=== PATIENT | female | born 2005 | race Caucasian/White ===

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

== ENCOUNTER 2023-12-06 20:16 | Emergency (ER) | payer OTHER ==
[~2023-12-06] VITALS: Ht 157.5 cm; Wt 74.9 kg
[~2023-12-06 20:16] MED LIST changes: +XULANE1 TDM TD
[2023-12-06] MEDS ORDERED: LORazepam 2 MG/ML VIAL IV ONE (20:45)
[2023-12-06] MEDS ORDERED: Ondansetron 4 MG/2 ML VIAL IV ONE (20:45)
[2023-12-06] MEDS ORDERED: NS 1,000 ML IV SCH (20:45)
[2023-12-06 20:59] LABS: BASO # 0.04 K/mm3 (0.02-0.10); EOS # 0.04 K/mm3 (0.04-0.40); EOS % 0.4 % (0.1-4.0); HEMOGLOBIN 14.2 g/dL (12.0-15.0); LYMPH# 2.37 K/mm3 (1.20-3.40); MEAN CELL VOLUME 84 fl (78-95); MEAN CORPUSCULAR HEMOGLOBIN 28 pg (26-32); MEAN CORPUSCULAR HGB CONC 33 g/dL (33-37); MEAN PLATELET VOLUME 9.2 fl (7.4-10.4); MONO # 0.55 K/mm3 (0.10-0.60); NEU # 6.21 K/mm3 (1.40-6.50); PLATELET COUNT 421 K/mm3 (130-400); RED BLOOD COUNT 5.15 M/mm3 (4.10-5.30); RED CELL DISTRIBUTION WIDTH 13.3 % (11.5-14.5); WHITE BLOOD COUNT 9.2 K/mm3 (4.8-10.8)
[2023-12-06 21:07] LABS: ALBUMIN 4.7 g/dL (3.5-5.0); SODIUM 137 mmol/L (136-145)
[2023-12-06 21:08] LABS: CALCIUM 9.9 mg/dL (8.3-10.5)
[2023-12-06 21:09] LABS: GLUCOSE 81 mg/dL (65-105)
[2023-12-06 21:10] LABS: TOTAL PROTEIN 7.5 g/dL (6.4-8.3)
[2023-12-06 21:11] LABS: TOTAL BILIRUBIN 0.5 mg/dL (0.2-1.2)
[2023-12-06 21:15] LABS: AST-SGOT 15 U/L (5-34)
[2023-12-06 21:16] LABS: ALCOHOL IN-HOUSE < 10 mg/dL (<10); ALT/SGPT 9 U/L (0-55); CARBON DIOXIDE 16 mmol/L (22-29)
[2023-12-06 21:17] LABS: ACETAMINOPHEN < 1 ug/mL
[2023-12-06 23:40] VITALS: BP 108/62
== END 2023-12-06 23:41 | disposition home or self-care (01) ==
LOC: ED 20:16
PROVIDERS: Physician Assistant
DX: F41.9 Anxiety disorder, unspecified (principal); F32.A Depression, unspecified; Z79.899 Other long term (current) drug therapy
CPT/HCPCS: J2060; J2405; J7030

== ENCOUNTER → 2023-12-30 | Outpatient (CLI) | payer OTHER ==
[~2023-12-30] VITALS: Ht 157.5 cm; Wt 71.3 kg
[~2023-12-30] MED LIST changes: +BUSPIRONE5 MG PO; +ONDANSETRON HYDR4 MG PO
[2023-12-30 14:00] VITALS: BP 105/70
[2023-12-30 14:51] LABS: BASO # 0.04 K/mm3 (0.02-0.10); EOS # 0.06 K/mm3 (0.04-0.40); EOS % 0.8 % (0.1-4.0); HEMATOCRIT 43.1 % (35.0-45.0); HEMOGLOBIN 13.6 g/dL (12.0-15.0); LYMPH# 2.18 K/mm3 (1.20-3.40); MEAN CELL VOLUME 88 fl (78-95); MEAN CORPUSCULAR HEMOGLOBIN 28 pg (26-32); MEAN CORPUSCULAR HGB CONC 32 g/dL (33-37); MEAN PLATELET VOLUME 9.9 fl (7.4-10.4); MONO # 0.52 K/mm3 (0.10-0.60); NEU # 4.85 K/mm3 (1.40-6.50); PLATELET COUNT 334 K/mm3 (130-400); RED BLOOD COUNT 4.92 M/mm3 (4.10-5.30); RED CELL DISTRIBUTION WIDTH 14.2 % (11.5-14.5); WHITE BLOOD COUNT 7.7 K/mm3 (4.8-10.8)
[2023-12-30 15:41] LABS: ALBUMIN 4.3 g/dL (3.5-5.0); CALCIUM 9.4 mg/dL (8.3-10.5); MAGNESIUM 2.08 mg/dL (1.70-2.20); TOTAL BILIRUBIN 0.7 mg/dL (0.2-1.2); TOTAL PROTEIN 7.2 g/dL (6.4-8.3)
[2023-12-30 16:06] LABS: PH-URINE 6.5 (5.0 - 8.0); URINE APPEARANCE CLOUDY (CLEAR); URINE COLOR YELLOW (YELLOW); URINE PROTEIN(semi-quant) 1+ (NEGATIVE)
[2023-12-30 16:07] LABS: URINE BILIRUBIN 1+ (NEGATIVE); URINE BLOOD NEGATIVE (NEGATIVE); URINE GLUCOSE NEGATIVE (NEGATIVE); URINE KETONE 4+ (NEGATIVE); URINE LEUKOCYTE ESTERASE NEGATIVE (NEGATIVE); URINE MUCUS PRESENT (NOT PRESENT); URINE NITRATE NEGATIVE (NEGATIVE)
[2023-12-30 17:00] VITALS: BP 107/67
--- NOTE | 2023-12-30 17:00 | NUR ---
IV fluids completed. Pt up to void with steady gait. Pt states she feels a little bit better. Denies any questions and reports that they will set up f/u appt with provider.
--- NOTE | 2023-12-30 17:05 | NUR ---
Pt discharged ambulatory w/ steady gait w/ mom to transport pt home.
== END ==
LOC: LAB 13:19
PROVIDERS: Nurse Practitioner Family
DX: R10.11 Right upper quadrant pain (principal)
CPT/HCPCS: J7120

== ENCOUNTER → 2024-01-06 | Outpatient (CLI) | payer OTHER | LOC: RAD 09:21 | DX: R10.11 Right upper quadrant pain (principal) ==